=== PATIENT | male | born 1945 | race Caucasian/White ===

== ENCOUNTER → 2023-06-04 13:47 | Outpatient (CLI) | payer OTHER, SELFPAY ==
--- NOTE | 2023-06-04 | DI.ECHO.S_ITS ---
[facility] +---------+ : : [address] [place] : : : : [phone] : : : : Phone: [phone]---------+ Echocardiogram Report + + :Name: LAVON OVALLE Study Date: 06/04/2023 Height: 67 in : :[facility] ReadingLocation: Weight: 225 lb : : Gender: Male BSA: 2.1 m2 : :: 1945 Age: 77 yrs BP: 185/84 mmHg: :Reason For Study: Congestive Heart Failure : :Ordering Physician: GIANNI, : :RISA Performed By: Grisel Beatty : :Referring: RISA ARCHER : + + Interpretation Summary This is a technically difficult study characterized by limited endocardial visualization and lack of subcostal images. Normal LV size, wall thickness; low normal EF estimated at 50-55% based on available views. However, focal wall motion abnormalities cannot be definitively excluded. Next time strongly recommend [employer] echocontrast. Normal chamber sizes. No significant valvular abnormalities. No prior study available for comparison. Procedure: A two-dimensional transthoracic echocardiogram with color flow and Doppler was performed. The study quality was technically adequate. The patient had an echocardiogram, but there is no comparison study available. The patient was in normal sinus rhythm during the exam. Left Ventricle: The left ventricle is normal in size. The ejection fraction is estimated to be 50-55%. Diastolic parameters suggest a relaxation abnormality of the left ventricle, consistent with probable normal filling pressures. Right Ventricle: The right ventricle is normal in size and function. Atria: The left atrial size is normal. Right atrial size is normal. There is no Doppler evidence for an interatrial shunt. Mitral Valve: The mitral valve is normal. There is no mitral valve stenosis. There is trace mitral regurgitation. Aortic Valve: The aortic valve is trileaflet. The aortic valve opens well. There is no aortic valve stenosis. No aortic regurgitation is present. Tricuspid Valve: The tricuspid valve is normal. There is no tricuspid stenosis. There is trace tricuspid regurgitation. Pulmonic Valve: The pulmonic valve is not well visualized. There is no pulmonic valvular stenosis. There is no pulmonic valvular regurgitation. Great Vessels: The aortic root is borderline dilated. The ascending aorta is at the upper limits of normal in size. The pulmonary artery is normal size. The inferior vena cava was not visualized. Pericardium/ Pleura There is a trivial pericardial effusion noted. There is no pleural effusion. MMode/2D Measurements & Calculations LVIDd: 5.0 cm LVOT diam: 2.1 cm LVIDs: 3.7 cm Ao root diam: 3.8 cm FS: 26.0 % asc Aorta Diam: 3.8 cm IVSd: 1.0 cm LVPWd: 1.0 cm LV puga. diameter/BSA (cm/m^2): 2.4 LV sys. diameter/BSA (cm/m^2): 1.7 LA A2 area: 21.6 cm2 RA long axis: 5.5 cm LA A4 area: 18.3 cm2 RA area: 16.9 cm2 LA length (vol): 6.1 cm RA vol: 44.1 ml LA vol: 55.1 ml RA : 20.7 ml/m2 LA vol index: 25.9 ml/m2 RVD1 (basal): 3.8 cm LVLs ap4: 6.7 cm LVLd ap2: 7.2 cm TAPSE_phl: 2.1 cm LVLs ap2: 6.4 cm Doppler Measurements & Calculations Ao V2 max: 132.5 cm/sec LVOT Max Carroll: 96.3 cm/sec Ao V2 mean: 89.9 cm/sec LV V1 max P.7 mmHg Ao max P.0 mmHg LV V1 VTI: 22.3 cm Ao mean P.0 mmHg BERNY(I,D): 2.7 cm2 Ao V2 VTI: 28.8 cm BERNY(V,D): 2.5 cm2 sev ratio: 0.78 BERNY indexed to BSA (cm^2/m^2): 1.3 MV E max carroll: 85.7 cm/sec PA V2 max: 85.9 cm/sec MV A max carroll: 84.3 cm/sec PA V2 mean: 59.7 cm/sec MV E/A: 1.0 PA mean P.0 mmHg Med Peak E' Carroll: 9.2 cm/sec PA pr(Accel): 34.0 mmHg E/E' med: 9.3 Lat Peak E' Carroll: 7.9 cm/sec E/E' lat: 10.9 E/e' average: 10.1 MV dec time: 0.21 sec SV(LVOT): 77.2 ml AV VR_phl: 0.72 BERNY(VTI)/BSA_phl: 1.3 Electronically signed by: Eunice Torres M.D. on Reading Physician:06/05/2023 12:41 AM
== END ==
PROVIDERS: Referring Provider Orthopaedic Surgery; Visit Provider Orthopaedic Surgery
DX: I50.9 Heart failure, unspecified (principal)
CPT/HCPCS: 93306